=== PATIENT | male | born 1960 | race Hispanic/Latino ===

== ENCOUNTER → 2018-12-07 | Day surgery (SDC) | payer BC ==
[~2018-12-07] MED LIST: FENTANYL CITRATE/PF 100MCG/2 ML INJ ONE; LOSARTAN POTAS100 MG PO; MIDAZOLAM HCL 2 MG/2 ML VIAL ONE
[2018-12-07 16:55] VITALS: BP 121/84
--- OUTSIDE RECORDS SUMMARY | 2018-12-10 11:56 | XMS REPORT ---
Author Author Danny Fernandez Organization [employer] Address Unknown Phone Unavailable Care Team Providers Care Air Conditioning Installer Name Role Phone Danny Fernandez CP Unavailable Allergies, Adverse Reactions, Alerts Substance Reaction Event Type penicillin Info Not Available Non Drug Allergy Problems Problem Type Condition Code Onset Dates Condition Status Assessment Mixed hyperlipidemia E78.2 Active Assessment Essential hypertension I10 Active Assessment Alkaline phosphatase elevation R74.8 Active Assessment Hyperglycemia R73.9 Active Assessment Tobacco abuse Z72.0 Active Problem LVH (left ventricular hypertrophy) I51.7 Active Problem Essential hypertension I10 Active Problem Fatty liver K76.0 Active Problem Mixed hyperlipidemia E78.2 Active Problem Alkaline phosphatase elevation R74.8 Active Problem Overweight E66.3 Active Medications Medication Code System Code Instructions Start Date End Date Status Dosage Losartan Potassium [facility] [id number] 50 MG Orally Once a day Active 1 tablet Vital Signs Date/Time: November 15, 2018 BMI 27.92 Index Weight 173 lbs Height 66 in Cardiac Monitoring Heart Rate 82 /min Blood Pressure Diastolic 74 mm Hg Blood Pressure Systolic 122 mm Hg Results No Known Results Summary Purpose [employer] Submission
--- OUTSIDE RECORDS SUMMARY | 2018-12-10 11:56 | XMS REPORT ---
Author Author Danny Fernandez Organization [employer] Address Unknown Phone Unavailable Care Team Providers Care Rn Complex Care Name Role Phone Danny Fernandez CP Unavailable Allergies, Adverse Reactions, Alerts Substance Reaction Event Type penicillin Info Not Available Non Drug Allergy Problems Problem Type Condition Code Onset Dates Condition Status Assessment Essential hypertension I10 Active Assessment Alkaline phosphatase elevation R74.8 Active Assessment Fatty liver K76.0 Active Assessment Encounter to discuss test results Z71.2 Active Problem LVH (left ventricular hypertrophy) I51.7 Active Problem Essential hypertension I10 Active Problem Fatty liver K76.0 Active Problem Mixed hyperlipidemia E78.2 Active Problem Alkaline phosphatase elevation R74.8 Active Problem Overweight E66.3 Active Medications Medication Code System Code Instructions Start Date End Date Status Dosage Losartan Potassium [facility] [id number] 50 mg Orally Once a day Active 1 tablet Vital Signs Date/Time: November 27, 2018 BMI 28.08 Index Weight 174 lbs Height 66 in Cardiac Monitoring Heart Rate 68 /min Blood Pressure Diastolic 78 mm Hg Blood Pressure Systolic 122 mm Hg Results No Known Results Summary Purpose [employer] Submission
--- OUTSIDE RECORDS SUMMARY | 2018-12-10 11:56 | XMS REPORT | Continuity of Care Document ---
Author Author [facility] Interface Address Unknown Phone Unavailable Problems Problem Status Onset Date Classification Date Reported Comments Source Mixed hyperlipidemia Active Problem 12/06/2018 [facility] Essential hypertension Active Diagnosis 12/06/2018 [facility] Alkaline phosphatase elevation Active Diagnosis 12/06/2018 [facility] Hyperglycemia Active Diagnosis 11/28/2018 [facility] Tobacco abuse Active Diagnosis 11/28/2018 [facility] LVH Active Problem 12/06/2018 [facility] Fatty liver Active Diagnosis 12/06/2018 [facility] Overweight Active Problem 12/06/2018 [facility] Encounter to discuss test results Active Diagnosis 12/06/2018 [facility] Medications Medication Details Route Status Patient Instructions Ordering Provider Order Date Source Losartan Potassium 1 tablet Orally Active 50 MG Orally Once a day [facility] Losartan Potassium 1 tablet Orally Active 50 mg Orally Once a day [facility] Allergies, Adverse Reactions, Alerts Substance Category Reaction Severity Reaction type Status Date Reported Comments Source penicillin Adverse Reaction Info Not Available Adverse Reaction Active 11/27/2018 [facility] Immunizations Immunization Date Given Site Status Last Updated Comments Source Results Order Name Results Value Reference Range Date Interpretation Comments Source Vital Signs Vital Sign Value Date Comments Source Weight 174 11/27/2018 [facility] Height 66 11/27/2018 [facility] Heart Rate 68 11/27/2018 [facility] Diastolic (mm Hg) 78 11/27/2018 [facility] Systolic (mm Hg) 122 11/27/2018 [facility] Weight 173 11/15/2018 [facility] Height 66 11/15/2018 [facility] Heart Rate 82 11/15/2018 [facility] Diastolic (mm Hg) 74 11/15/2018 [facility] Systolic (mm Hg) 122 11/15/2018 [facility] Encounters Location Location Details Encounter Type Encounter Number Reason For Visit Attending Provider ADM Date DC Date Status Source Procedures Procedure Code Date Perfomer Comments Source
== END | disposition home or self-care (01) ==
LOC: OR 12:02
PROVIDERS: ATTEND Internal Medicine Gastroenterology
DX: Z12.11 Encounter for screening for malignant neoplasm of colon (principal); K63.5 Polyp of colon; K64.8 Other hemorrhoids; I10 Essential (primary) hypertension; F17.290 Nicotine dependence, other tobacco product, uncomplicated; Z88.0 Allergy status to penicillin; Z01.810 Encounter for preprocedural cardiovascular examination; Z68.27 Body mass index [BMI] 27.0-27.9, adult
CPT/HCPCS: 45384; 93005; J2250